=== PATIENT | female | born 1985 | race African-American/Black ===

== ENCOUNTER 2017-01-24 12:25 | Emergency (ER) | payer MEDICAID ==
[~2017-01-24] VITALS: Ht 149.9 cm; Wt 61.0 kg
[2017-01-24] MEDS ORDERED: IBUPROFEN 800MG TABLET PO ONE (14:30)
[2017-01-24] MEDS ORDERED: PEN G BENZ/PEN G PROCAINE CR 1.2 MMU/2 ML IM ONE (14:30)
[2017-01-24] MEDS ORDERED: SODIUM CHLORIDE 0.9% 1,000 ML IV ONE (14:30)
[2017-01-24 14:56] LABS: HEMATOCRIT. 39.9 % (36.0-48.0); HEMOGLOBIN. 13.5 g/dL (12.0-16.0); MEAN CORPUSCULAR HEMOGLOBIN 27.7 pg (28.0-32.0); MEAN CORPUSCULAR VOLUME 81.8 fL (81.0-99.0); PLATELET 263 x1000/uL (130-400); RED BLOOD CELL COUNT 4.88 mill/uL (4.2-5.4)
[2017-01-24 15:02] LABS: CHLORIDE 104 mEq/L (98-107)
[2017-01-24 15:07] LABS: CARBON DIOXIDE 26 mEq/L (21-32)
[2017-01-24 16:35] LABS: PLATELET ESTIMATE NORMAL
[2017-01-24] MEDS ORDERED: PENICILLIN G BENZATHINE 1,200,000 UNITS/2ML SYR IM NR (17:28)
[2017-01-24] MEDS ORDERED: VISCOUS LIDOCAINE 2% 15 ML UDC MM PRN (18:00)
[2017-01-24 20:19] VITALS: BP 110/61
== END 2017-01-24 20:41 | disposition home or self-care (01) ==
LOC: ER 14:36
DX: J02.0 Streptococcal pharyngitis (principal); B95.5 Unspecified streptococcus as the cause of diseases classified elsewhere
CPT/HCPCS: 36415; 80048; 83605; 85007; 85027; 87040; 96360; 96372; 99284; J0561; J7030; J0558